=== PATIENT | female | born 1995 | race Caucasian/White ===

== ENCOUNTER 2023-05-24 06:05 | Day surgery (SDC) | payer OTHER, SELFPAY ==
[2023-05-24] VITALS (23 sets, daily range): BP systolic 81–108; BP diastolic 51–76; PULSE 62–98; RESP 12–16; TEMP 36.3–37.2; O2SAT 96–100; BMI 22.4
[2023-05-24 06:37] LABS: Ur HCG Qualitative* Negative (Negative)
[2023-05-24 06:45] LABS: Hemoglobin* 14.8 gm/dL (12.0-16.0)
[2023-05-24] MEDS: LACTATED RINGERS 1000 ML 1,000 ML 100 ML IV ×2 (07:03→08:30)
--- NOTE | 2023-05-24 07:21 | W.PM.H&PU ---
History & Physical Update History & Physical Update H&P Reviewed and patient assessed: No changes noted
--- NOTE | 2023-05-24 07:21 | PM.PROC ---
Procedure Note Time Seen by Provider: : Date Seen: 05/24/23 Date of procedure: 05/24/23 Will [facility] bill your pro fee for this procedure?: Yes Procedure: Preoperative diagnosis: 27-year-old 4 para 3013 with severe dysmenorrhea and chronic pelvic pain Postoperative diagnosis: Same Procedure: Total laparoscopic hysterectomy, bilateral salpingectomy, diagnostic cystoscopy. Anesthesia: General endotracheal, local Surgeon: Kasia Reza MD Assist: Gale Quiñoenz MD Estimated blood loss: 100 mL. IV Fluid: 1800 mL Urine output: 250 mL, clear urine at the end of procedure Drains: Smith to gravity Specimen: Uterus and bilateral fallopian tubes to pathology. Findings: On exam under anesthesia: The uterus was anteverted, approximately 8 week size, mobile without nodularity or masses palpable. Adnexa without mass or fullness palpable. On laparoscopy: Uterus, fallopian tubes, and bilateral ovaries appear normal. Appendix, liver and gallbladder all appeared normal. Procedure: Sujatha was taken to the operating room where general anesthetic was found to be adequate. She was placed in the dorsal lithotomy position and an exam under anesthesia was performed with findings stated above. She was then prepped and draped in a normal sterile manner. A Smith catheter was placed. A bivalve speculum was placed in the vaginal canal. A long Allis clamp was placed on the anterior lip of the cervix, in the uterus sounded to 8 cm. A extra large VCare uterine manipulator was then placed. The Allis clamp and speculum were removed from the cervix. Attention was then turned to performing the laparoscopic portion of the procedure. All incisions were infiltrated with 0.25% Marcaine prior to incising the skin. A vertical, infraumbilical 1 cm incision was made. An 11 mm trocar was then placed under direct visualization. The abdomen was then insufflated with CO2 gas to a pressure of 15 mm of mercury. Two,, pelvic ports were then placed approximately 3-4 finger breaths medial to the ischial crests. The trocar in the RLQ = 5mm, LLQ = 11mm. These were placed under direct visualization. Attention was then turned to performing the hysterectomy. Both ureters were visualized in the normal position bilaterally. The left fallopian tube was grasped and removed with sequential pedicles using the dissecting, PowerSeal blunt tip dissecting forceps. The left side of the hysterectomy was performed using the PowerSeal dissecting forceps. The 1st pedicles were starting with the broad ligament that was cauterized and and bisected. In sequence show pedicles were formed to divide the utero-ovarian ligament. Then sequential pedicles were made through the broad ligament. The posterior leaf of the broad ligament was then divided and sequential pedicles carried down to the level of the VCare cup. The anterior leaf of the broad ligament was then divided down to the level of the anterior aspect of the VCare cup and a bladder flap created. The uterine vessels were then skeletonized. The uterine vessels were then cauterized and divided. Then excess tissue was cleared over the top of the VCare cup using the dissecting forceps. The right salpingectomy and right side of the hysterectomy were then performed in a similar manner. The [employer] pen with the spatula attachment was then used to perform the colpotomy incising around the VCare cup. The uterus was removed and the fundus placed in the vaginal canal to maintain insufflation. The vaginal cuff was then reapproximated using 2-0 V lock suture in a running manner. All the pedicles and vaginal cuff were then closely visualized and hemostasis obtained with bipolar cautery using the PowerSeal dissecting forceps or the [employer] pen with the spatula. The the uterus was removed from the vaginal canal and sent to pathology. The Smith catheter was briefly removed. A diagnostic cystoscopy was performed using normal saline as the insufflation medium. The dome of the bladder was noted to be without injury and no evidence of any sutures from the vaginal cuff causing injury. Normal urine flow was noted through both ureteral orifices. Fluorescein IV was used to visualize the urine more easily. The Smith catheter was then replaced. Attention was then returned to the abdomen where hemostasis was verified. The CO2 pressure decreased to 8mmHG and hemostasis verified. The fascia in the LLQ incision was approximated with 0-Vicryl suture using the Ernst Thomasen fascial closure device. This was closed under direct visualization with the laparoscope. The fascia in the umbilical incision was reapproximated using 0 Vicryl on a UR 6 needle. All trocars were removed under direct visualization. CO2 gas was allowed to escape the infraumbilical port prior to its removal. All skin incisions were re-approximated using 4-0 Monocryl in a running subcuticular manner, Exofin skin adhesive gel and adhesive bandages placed. The patient tolerated this procedure well. Sponge, lap and instrument counts were correct x2 at the end of the procedure and the patient was taken to the recovery area in stable condition. The patient received 2 gm IV ancef prior to the start of the procedure.
[2023-05-24] MEDS: CEFAZOLIN 2 GM INJ IVP (07:40)
[2023-05-24] MEDS: BUPIVACAINE 0.5% 30 ML INJECTION (08:00)
--- NOTE | 2023-05-24 08:24 | W.PM.NB ---
Nerve Block Nerve Block Time Seen by Provider: 07:33 Date Seen: 05/24/23 Type of block requested by surgeon for post-operative analgesia: TAP Side: bilateral Time out performed: Yes Verification of patient name: Yes Verification of date of : Yes Site marking: site marked Name of person performing procedure: Kevin Continuous monitoring Was continuous monitoring of O2 sat, B/P, playground monitor, recorded every 15 minutes?: Yes Procedure Checklist: sterile prep, needles and gloves Ultrasound guided. Images saved: Yes Medications given in 5ml increments after negative aspiration: Marcaine %: 0.25 mL: 30 Needle gauge: 20 and Exparel mL: 10 Patient tolerated procedure well: Yes Additional comments: Needle noted between internal oblique and transversus abdominus. Local spread visualized Block Charges Block Charge (with Pro Fee): TAP Bilateral Use of Ultrasound Machine for Block: Yes- US Guidance/pain block
--- NOTE | 2023-05-24 08:24 | W.ANESCHARGE ---
Anesthesia Charges Start Date/Time Anesthesia Start Date: 05/24/23 Anesthesia Start Time: 07:25 Stop Date/Time Anesthesia Stop Date: 05/24/23 Anesthesia Stop Time: 09:37
[2023-05-24] MEDS: KETOROLAC 30 MG/ML inj IVP ×3 (09:02→21:26)
--- NOTE | 2023-05-24 09:38 | W.ANESCHARGE ---
Anesthesia Charges Start Date/Time Anesthesia Start Date: 05/24/23 Anesthesia Start Time: 07:25 Stop Date/Time Anesthesia Stop Date: 05/24/23 Anesthesia Stop Time: 09:37
[2023-05-24] MEDS: ACETAMINOPHEN 325 MG TABLET 1000 MG PO ×3 (10:50→23:35)
[2023-05-24] MEDS: SODIUM CHLORIDE 0.9 % (FLUSH) 10 ML SYRINGE IVF ×2 (11:45→15:15)
[2023-05-24] MEDS: HYDROmorphone 0.5 mg/0.5 ml inj IVP (11:45)
[2023-05-24] MEDS: OXYCODONE 5 MG TABLET PO ×3 (13:23→23:36)
[2023-05-24] MEDS: LACTATED RINGERS 1000 ML 1,000 ML 125 ML IV (15:16)
[2023-05-24] MEDS: SIMETHICONE 80 MG TAB.CHEW 160 MG PO (20:05)
[2023-05-25] MEDS: SIMETHICONE 80 MG TAB.CHEW 160 MG PO ×2 (00:29→06:49)
[2023-05-25 00:30] VITALS: BP 98/60; PULSE 74; RESP 16; TEMP 36.8; O2SAT 98
[2023-05-25 05:12] LABS: Hemoglobin* 11.8 gm/dL (12.0-16.0)
[2023-05-25] MEDS: IBUPROFEN 600 MG TABLET PO (05:13)
[2023-05-25 05:16] VITALS: BP 94/58; PULSE 60; RESP 16; TEMP 36.5; O2SAT 99
[2023-05-25] MEDS: ACETAMINOPHEN 325 MG TABLET 1000 MG PO (06:53)
--- NOTE | 2023-05-25 07:19 | PM.GYNDS1 ---
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 Indication for surgery: Dysmenorrhea and chronic pelvic pain. Intraoperative findings: On exam under anesthesia: The uterus was anteverted, approximately 8 week size, mobile without nodularity or masses palpable. Adnexa without mass or fullness palpable. On laparoscopy: Uterus, fallopian tubes, and bilateral ovaries appear normal. Appendix, liver and gallbladder all appeared normal. She had an uncomplicated surgery. Postoperative course has been uneventful. Vitals have been stable. She has remained afebrile. Today, on postoperative day 1, she reports the pain is well controlled. She has been able to ambulate Without difficulty. She is tolerating regular diet. She is passing flatus. Pettit catheter has been removed, and she is voiding without difficulty. 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 Clean, dry, and intact. No erythema, induration, or abnormal discharge/breakdown. Three laparoscopic incisions. 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: Data Data Completed and Pending Labs on day of discharge: Labs from last 24 hours 05/25/23 05/24/23 05:06 06:30 Hgb 11.8 L Blood Type B Positive Antibody Screen NEGATIVE Procedures Procedures: Procedures Operation Date: 05/24/23 07:00 Actual Procedure Side Surgeon p M/S - Total Laparoscopic Hysterectomy, Bilateral Salpingectomy, Diagnostic Cystoscopy Kasia Reza MD Discharge Plan Discharge Disposition: Home, Self-Care Discharging Surgeon: Claire Mehta Follow-Up Appointment: 2 and 6 weeks post op Prescriptions: Discontinued peg 3350-electrolytes [Golytely] 236-22.74-6.74 -5.86 gram recon soln 240 ml PO Q10M Qty: 4000 0RF Rx Instructions: until fecal effluent is clear No Action oxycodone 5 mg tablet 5 mg PO Q6H PRN (Reason: pain) Qty: 20 0RF acetaminophen [Tylenol Extra Strength] 500 mg tablet 1,000 mg PO Q6H PRN (Reason: fever or pain) 30 Days Qty: 60 0RF ibuprofen 600 mg tablet 600 mg PO Q6H PRN (Reason: fever or pain) Qty: 60 0RF docusate sodium 100 mg capsule 100 mg PO BID Qty: 60 0RF simethicone [Gas Relief (simethicone)] 125 mg capsule 125 mg PO BID-QID PRN (Reason: abdominal distention) 14 Days Qty: 60 0RF Patient Instructions: Surgical Site Infections (DC) Additional Instructions: LAPAROSCOPY POSTOPERATIVE INSTRUCTIONS ACTIVITY No heavy lifting/pushing/pulling for 4-6 weeks. Do not lift anything more than about 15 lbs (such as laundry, groceries, children, pets), vacuum, push heavy doors or grocery carts, etc. You may climb stairs as tolerated. Do not put anything in the vagina for 6-8 weeks after surgery unless otherwise instructed by your doctor (including tampons, douching, sexual intercourse, etc). No driving for about 2 weeks after surgery, while you are taking narcotic pain medication, or until you feel that you are ready. Practice checking your blind spot and stepping hard on the brake. Avoid sitting or lying in bed for more than 2 hours at a time while you are awake to reduce your risk of blood clots. You may return to work when directed by your physician. Please contact your doctor if you need any return to work letters or medical leave paperwork to be completed. WOUND CARE You will have 4 small incisions on your abdomen. There will be dissolvable stitches under your skin that do not need to be removed. Shower daily after surgery. Clean your incision with mild antibacterial soap and water. Pat your incision dry with a clean towel. No tub baths until wound is completely healed. Wash your hands frequently, especially before touching your incision, changing any dressings, after using the restroom, and before eating. PAIN MANAGEMENT Take your oral pain medication as needed. You should be taking Ibuprofen 600mg every 6 hours with 1 g of Tylenol every 6 hours. You can take these together every six hours or alternate them every 3 hours. You should then take the oxycodone as needed if you have breakthrough pain on top of the Tylenol and Ibuprofen. Some pain medications can cause constipation so you should take a stool softener (i.e. colace/senna) while you are on these medications. You may also take milk of magnesia or Miralax for constipation. WHAT TO EXPECT AT HOME Recovery from surgery is generally 2-4 weeks, but sometimes longer for more strenuous activity. It is normal to be very tired during this time. It is normal to have some drainage or a small amount of vaginal bleeding after surgery which may last up to 6 weeks. You may go home with a pettit catheter in your bladder. If so, you will need to follow up for a nurse visit in 7-10 days for removal. You will most likely experience gas pain, abdominal swelling, or shoulder pain for 24-72 hours after surgery. This is from the carbon dioxide gas put into your abdomen to better visualize your organs. A warm shower, heating pad, and/or walking may help. WHEN TO CALL YOUR DOCTOR : Fever (>100.4?F or 38.0?C) or chills. Incision problems such as redness, warmth, swelling, or foul-smelling drainage. Severe nausea or persistent vomiting. Bright red vaginal bleeding (soaking >1 pad/hour) or foul-smelling vaginal drainage. Severe pain not relieved with pain medication. Pain and swelling in your legs, especially if it is only on one side and not the other. Pain with urination, cloudy urine, or foul-smelling urine. Or if you have any other problems or questions. CALL 911 OR GO TO THE EMERGENCY ROOM IF YOU HAVE: Any shortness of breath, difficulty breathing, or chest pain. Forms: Work/School Release Follow-up: Marley Deng, [facility] [Primary Care Provider] - Discharge Orders: Discharge Order (Routine); Ordered 05/25/23 Ordered By: Claire Mehta Consulting provider completed their portion of the discharge: Yes
[2023-05-25 07:35] VITALS: BP 93/57; PULSE 55; RESP 16; TEMP 37; O2SAT 99
[2023-05-25] MEDS: OXYCODONE 5 MG TABLET PO (08:25)
== END 2023-05-25 09:48 | disposition home or self-care (01) ==
LOC: OR 06:06 → MEDSURG 06:08 → OB 07:55
PROVIDERS: PCP Physician Assistant; Visit Provider Obstetrics & Gynecology
PROC: 0UT94ZZ Resection of Uterus, Percutaneous Endoscopic Approach (ICD-10-PCS; CPT 58571; principal; 2023-05-24 07:00)
DX: N94.6 Dysmenorrhea, unspecified (principal); R10.2 Pelvic and perineal pain; G89.29 Other chronic pain; G89.18 Other acute postprocedural pain; N92.0 Excessive and frequent menstruation with regular cycle
CPT/HCPCS: 58571; 00840; 36415; 64488; 76942; 81025; 85018; 86850; 86900; 86901; 88307; A9270; C9290; J0330; J0665; J0690; J1100; J1170; J1885; J2250; J2371; J2405; J2704; J2710; J3010; J7120

== ENCOUNTER 2023-06-07 10:48 | Outpatient (CLI) | payer OTHER, SELFPAY | END 2023-06-07 10:49 | disposition home or self-care (01) | LOC: NFLDREF 10:49 | PROVIDERS: PCP Physician Assistant; Visit Provider Obstetrics & Gynecology | DX: R30.0 Dysuria (principal) | CPT/HCPCS: 87086 ==

== ENCOUNTER 2023-12-07 09:13 | Outpatient (CLI) | payer OTHER, SELFPAY | END 2023-12-07 09:14 | disposition home or self-care (01) | PROVIDERS: PCP Physician Assistant; Visit Provider Family Medicine | DX: R53.83 Other fatigue (principal); Z13.220 Encounter for screening for lipoid disorders; Z13.228 Encounter for screening for other metabolic disorders; Z13.21 Encounter for screening for nutritional disorder | CPT/HCPCS: 80048; 80061; 83735; 84443 ==